=== PATIENT | female | born 1985 | race Two or more races ===

== ENCOUNTER 2020-01-24 15:18 | Outpatient (REF) | payer OTHER, MEDICAID, SELFPAY | END 2020-01-24 15:19 | disposition home or self-care (01) | LOC: HO.LAB 15:18 | PROVIDERS: Visit Provider Internal Medicine | DX: Z20.828 Contact with and (suspected) exposure to other viral communicable diseases (principal) | CPT/HCPCS: C9803; U0003 ==

== ENCOUNTER 2021-05-02 14:45 | Outpatient (REF) | payer OTHER, MEDICAID, SELFPAY ==
[2021-05-03 09:44] LABS: BV Int Neg Control Negative (Negative); BV Int Pos Control Positive (Positive)
[2021-05-03 09:46] LABS: CT PCR NOT DETECTED (Not Detect.); NG PCR NOT DETECTED (Not Detect.)
[2021-05-04 16:01] LABS: HPV mRNA E6/E7 rflx Not Detected (Not Detected)
== END 2021-05-02 14:46 | disposition home or self-care (01) ==
LOC: HO.LAB 14:45
PROVIDERS: Visit Provider Advanced Practice Midwife
DX: Z30.432 Encounter for removal of intrauterine contraceptive device (principal); Z20.2 Contact with and (suspected) exposure to infections with a predominantly sexual mode of transmission; R53.83 Other fatigue; N92.0 Excessive and frequent menstruation with regular cycle
CPT/HCPCS: 58301; 87480; 87491; 87510; 87591; 87624; 87660; 88142

== ENCOUNTER 2021-06-11 11:40 | Outpatient (REF) | payer OTHER, MEDICAID, SELFPAY ==
[2021-06-11 13:08] LABS: Hemoglobin 13.1 g/dl (12.0-16.0); Mean Corpuscular HGB Conc 35.4 g/dl (31.0-35.0); Mean Corpuscular Hemoglobin 28.4 pg (27.0-33.0); Mean Corpuscular Volume 80.1 fL (80.0-98.0); Mean Platelet Volume 10.5 fL (9.4-12.3); Platelet Count 407 X10*3/uL (160-400); Red Blood Count 4.62 X10*6/uL (4.20-5.50); Red Cell Distribution Width 14.3 % (11.0-16.0); White Blood Count 11.6 X10*3/uL (4.8-10.8)
[2021-06-11 13:49] LABS: Thyroid Stimulating Hormone 2.35 uIU/mL (0.32-4.0)
[2021-06-12 03:53] LABS: HBsAGNum1 0.11 S/CO (0.00-0.99); HIV AB/AG Nonreactive (Nonreactive); HIV Num 1 0.06 S/CO (0.00-0.99); Hepatitis B Surface Antigen Negative (Negative); ~HepC Num1 0.09 S/CO (0.00-0.79); ~Hepatitis C Antibody Nonreactive (Nonreactive)
[2021-06-12 06:10] LABS: Syphilis Screen Nonreactive (Nonreactive)
== END 2021-06-11 11:41 | disposition home or self-care (01) ==
LOC: HO.LAB 11:40
PROVIDERS: Visit Provider Advanced Practice Midwife
DX: Z01.419 Encounter for gynecological examination (general) (routine) without abnormal findings (principal); Z20.2 Contact with and (suspected) exposure to infections with a predominantly sexual mode of transmission; N92.0 Excessive and frequent menstruation with regular cycle; R53.83 Other fatigue
CPT/HCPCS: 36415; 84443; 85027; 86780; 86803; 87340; 87389

== ENCOUNTER 2021-06-11 12:41 | Emergency (ER) | payer OTHER, MEDICAID, SELFPAY ==
[2021-06-11 13:01] VITALS: BP 131/77; PULSE 76; RESP 18; TEMP 36.3; O2SAT 98; BMI 35.6
--- NOTE | 2021-06-11 13:35 | ED.GENADULT ---
HPI - General Adult General Chief complaint: General Medical Stated complaint: back pain/body aches Time Seen by Provider: 06/11/21 13:26 Source: patient Mode of arrival: ambulatory Limitations: no limitations History of Present Illness HPI narrative: 35-year-old female complaining of body aches of her entire body in all her joints chronic back pain shoulder hand and knees and leg pain. 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 She is taking Tylenol last dose being this morning Related Data Previous Rx's Medication Instructions Recorded norethindrone (contraceptive) 0.35 0.35 mg PO DAILY #84 tab 05/02/21 mg tablet Allergies Allergy/AdvReac Type Severity Reaction Status Date / Time No Known Allergies Allergy Verified 06/11/21 13:01 Review of Systems Review of Systems: Review of systems: General: Patient denies any fever chills recent illness or falls Musculoskeletal: back pain or body aches there have been no falls or other injuries HEENT: denies headache, runny nose, ear pain Respiratory: denies shortness of breath, cough Cardiovascular: no chest pain or palpitations : denies dysuria, frequency Abdomen: no nausea vomiting denies abdominal pain Extremities: no swelling, no pain Skin: no diaphoresis Yes all other systems are reviewed and are negative [facility] Family History Family History Mother HTN (hypertension) Paternal Aunt Ovarian cancer Paternal Aunt Thyroid cancer Social History Social History Alcohol intake: never Patient Tobacco Use Status: Never used Tobacco Advance Directives: No Advance Directives Information Provided: No Gender identity: Female Physical Exam ED Vital Signs: Vital Signs - 24 hr 06/11/21 13:01 Temperature 97.3 F Pulse Rate 76 Respiratory Rate 18 Blood Pressure 131/77 Pulse Oximetry 98 BMI result Body Mass Index 35.6 General: Well-appearing well-nourished in no signs of distress HEENT: Normocephalic atraumatic Neck: No signs of JVD, no masses no tenderness or lymphadenopathy Cardiovascular: Regular rate and rhythm Respiratory: Clear to auscultation bilaterally Abdomen: Soft nontender no masses Extremities: Normal pedal pulses no signs of edema Skin: Dry warm no rashes Back: No tenderness full ROM Medical Decision Making MDM Narrative Medical decision making narrative: Patient with body aches no signs of infection no signs or need for imaging I will give patient Toradol Tylenol since September for COVID and flu. COVID and flu both negative will send patient home with PCP follow-up. Lab Data Labs: Lab Results 06/11/21 06/11/21 Range/Units 13:49 13:49 COVID-19 (MARIA ANTONIA) Negative (Negative) COVID-19 Clin Com See Note Influenza Type A (BENITO) Negative (Negative) Influenza Type B (BENITO) Negative (Negative) Influenza A & B Note See Note Discharge Plan Discharge Clinical Impression: Myalgia Patient Disposition: Home, Self-Care Instructions: Musculoskeletal Pain (ED), Arthralgia (ED) Additional Instructions: Please call follow care doctor given the concerns please do not hesitate to come back to emergency department. Prescriptions: No Action norethindrone (contraceptive) 0.35 mg tablet 0.35 mg PO DAILY Qty: 84 4RF
[2021-06-11] MEDS: Ketorolac Tromethamine 30 MG/ML VIAL 15 MG IM (13:50)
[2021-06-11] MEDS: Acetaminophen 325 MG TABLET 650 MG PO (13:50)
[2021-06-11 14:13] LABS: COVID-19 Test Negative (Negative)
[2021-06-11 14:20] LABS: Influenza A Negative (Negative); Influenza B2 Negative (Negative)
[2021-06-11 14:33] VITALS: RESP 18
== END 2021-06-11 14:38 | disposition home or self-care (01) ==
PROVIDERS: Emergency Provider Student in an Organized Health Care Education/Training Program
DX: M79.10 Myalgia, unspecified site (principal); Z20.822 Contact with and (suspected) exposure to COVID-19
CPT/HCPCS: 87502; 87635; 96372; 99283; 99284; J1885

== ENCOUNTER 2021-07-31 12:13 | Outpatient (REF) | payer OTHER, MEDICAID, SELFPAY | END 2021-07-31 12:14 | disposition home or self-care (01) | LOC: HO.LAB 12:13 | PROVIDERS: Visit Provider Advanced Practice Midwife | DX: N92.0 Excessive and frequent menstruation with regular cycle (principal); Z12.4 Encounter for screening for malignant neoplasm of cervix | CPT/HCPCS: 88142 ==

== ENCOUNTER 2021-09-12 14:54 | Outpatient (REF) | payer OTHER, MEDICAID, SELFPAY ==
--- NOTE | ~2021-09-12 | US_ITS ---
EXAMINATION: US PELVIS CLINICAL INFORMATION: Excessive and frequent menstruation with regular cycle, last menstrual period 08/15/2021. COMPARISON: None TECHNIQUE: Ultrasound of the pelvis is performed using both transabdominal and transvaginal transducers along with Doppler. Transvaginal imaging is performed due to inadequate visualization transabdominally. FINDINGS: The uterus is heterogeneous and measures 9.8 x 4.8 x 6.3 cm. There is a 2.5 x 2.5 x 2.6 cm fibroid. No significant free fluid. Nabothian cysts identified. Endometrial thickness is 1.8 cm. Left ovary is unremarkable and measures 2.9 x 2.3 x 1.6 cm, volume 5.6 mL. Right ovary measures 3.0 x 2.0 x 2.5 cm, volume 7.9 mL. Echogenic foci characteristic of calcifications are identified within the right ovary. US/US pelvic and transvaginal IMPRESSION: 1. Heterogeneous uterus with 2.6 cm fibroid. 2. Echogenic foci right ovary are characteristic of calcification. 3. Unremarkable left ovary. 4. No significant fluid in the cul-de-sac. 5. Endometrial thickness is 1.8 cm.
== END 2021-09-12 14:55 | disposition home or self-care (01) ==
LOC: HO.US 14:54
PROVIDERS: Visit Provider Advanced Practice Midwife
DX: N92.0 Excessive and frequent menstruation with regular cycle (principal)
CPT/HCPCS: 76830; 76856

== ENCOUNTER 2022-05-22 08:48 | Emergency (ER) | payer OTHER, MEDICAID, SELFPAY ==
[2022-05-22 08:50] VITALS: BP 126/81; PULSE 101; RESP 20; TEMP 36.5; O2SAT 98; BMI 34.7
--- NOTE | 2022-05-22 09:34 | ED_ITS ---
HPI - General Adult General Chief complaint: Neck Pain/Injury Stated complaint: r sided neck pain into shoulder Time Seen by Provider: 05/22/22 09:34 Source: patient Limitations: no limitations History of Present Illness HPI narrative: 36-year-old female complaining of right-sided neck pain x2 days pain is atraumatic in nature patient awoke with the pain pain increases with range of motion or palpation the right side. 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 Patient is without fever chills or shortness of breath. Patient took a home test was negative. Patient denies any vaginal discharge. Symptoms are [id number] pain in the right neck is 6/10. Related Data Previous Rx's Medication Instructions Recorded methocarbamol 750 mg tablet 750 mg PO TID PRN muscle spasm #20 05/22/22 tabs ondansetron HCl 4 mg tablet 4 mg PO Q8H PRN nausea and 05/22/22 vomiting #10 tabs Allergies Allergy/AdvReac Type Severity Reaction Status Date / Time No Known Allergies Allergy Verified 09/20/21 13:47 Review of Systems Review of Systems: Constitutional : No Weight loss, No Fever, No Chills, No Night Sweats, No Fatigue, No Malaise ENT/Mouth : No sore throat Eyes: no vision changes eye discharge Cardiovascular : No Chest Pain, No SOB, No Dyspnea on Exertion, No Orthopnea, No Edema, No Palpitations Respiratory : No Cough, No Sputum, No Wheezing, No Smoke Exposure, No Dyspnea Gastrointestinal : few episodes of nausea vomiting and some slight diarrhea no abdominal pain at this time Genitourinary : no irregular bleeding, No Dysuria, No Urinary Frequency, No Hematuria, No Urinary Incontinence, No Urgency, No Flank Pain Musculoskeletal : neck is tender neck pain right-sided. No other extremity pain Neuro : No Weakness, No Numbness, No Paresthesias, No Loss of Consciousness, No Dizziness, No Headache Psych : No Anxiety/Panic, No Depression, No SI/HI/AH/VH, No Social Issues, Heme/Lymph: No Bruising, No Bleeding,No Lymphadenopathy Endocrine : No Polyuria, No Polydipsia, No Temperature Intolerance PMF Past Medical History Attestation statement: The following information was validated with the patient. Family History Family History Mother HTN (hypertension) Paternal Aunt Ovarian cancer Paternal Aunt Thyroid cancer Social History Social History Alcohol intake: never Patient Tobacco Use Status: Never used Tobacco Advance Directives: No Gender identity: Female Physical Exam ED Vital Signs: Vital Signs - 24 hr 05/22/22 08:50 Temperature 97.7 F Pulse Rate 101 H Respiratory Rate 20 Blood Pressure 126/81 Pulse Oximetry 98 Oxygen Delivery Method Room Air BMI result Body Mass Index 34.7 vital signs have been reviewed as normal and appeared to be correct. Blood pressure normal. Heart rate normal. Respiration rate normal. Temperature normal. Oxygen saturation normal. Appearance: Alert. Oriented X3. No acute distress. Head: Normal external exam. Normocephalic. Atraumatic. No Farrell signs noted. No raccoon eyes noted Eyes: PERRLA. EOMI. Conjunctiva and sclera normal. Eyelids normal. ENT: Pharynx normal. Uvula midline. Moist mucous membranes. No trismus noted. No drooling noted. No muffled voice noted. Neck: positive paraspinal muscle tenderness of the cervical spine on the right side no midline tenderness. No nuchal rigidity CVS: Heart regular rate and rhythm no murmurs and rubs Respiratory: Breath sounds are clear to auscultation bilaterally. No accessory muscle use noted. Abdomen: Soft nontender no rebound or guarding positive bowel sounds Back: No CVA tenderness. Full range of motion noted. Skin: Skin warm and dry. Normal skin color. Normal skin turgor. No rashes/lesions/lacerations noted. Extremities: No lower extremity edema. Extremities exhibit normal range of motion. Extremities nontender. Neuro: Oriented X 3. No motor deficit. No sensory deficit. Reflexes normal. Course Course Course Narrative: Spasmodic torticollis right-sided Viral syndrome Nausea vomiting 36-year-old female awoke 2 days prior with right-sided neck pain. Pain increases with range of motion. patient also had some slight nausea vomiting and slight diarrhea. 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 Patient denies any recent trauma or falls or injuries to the neck. Symptoms are seem consistent with spasmodic torticollis will check a the U test at this time as her menses is late. Abdomen soft nontender no rebound or guard on oral mucosa is moist 11:18 U preg is negative symptoms seem consistent with spasmodic torticollis will treat with a muscle relaxer and sats at this time. patient is also experi ences slight GI bug will place on Zofran at this time. Abdomen soft no rebound or guarding no concerns for intra-abdominal issues at this time. Patient is otherwise well-appearing nontoxic in appearance plan to discharge home at this time Medical Decision Making Lab Data Labs: Lab Results 05/22/22 Range/Units 10:42 Urine Test NEGATIVE (NEGATIVE) Discharge Plan Discharge Clinical Impression: Spasmodic torticollis Patient Disposition: Home, Self-Care Instructions: Spasmodic Torticollis (ED) Additional Instructions: The symptoms of the right-sided neck pain are consistent with spasmodic torticollis which will treat with a muscle relaxer test is negative [place] diet increase fluids rest Prescriptions: New methocarbamol 750 mg tablet 750 mg PO TID PRN (Reason: muscle spasm) Qty: 20 0RF ondansetron HCl 4 mg tablet 4 mg PO Q8H PRN (Reason: nausea and vomiting) Qty: 10 0RF Stand Alone Forms: Work/School Release
[2022-05-22 11:12] LABS: UPreg QC Valid YES; Urine Pregnancy NEGATIVE (NEGATIVE)
== END 2022-05-22 11:44 | disposition home or self-care (01) ==
PROVIDERS: Physician Assistant; Emergency Provider Emergency Medicine; PCP Internal Medicine
DX: S13.4XXA Sprain of ligaments of cervical spine, initial encounter (principal); M43.6 Torticollis; X58.XXXA Exposure to other specified factors, initial encounter; Y93.9 Activity, unspecified; Y92.9 Unspecified place or not applicable; Y99.9 Unspecified external cause status
CPT/HCPCS: 81025; 99282; 99283

== ENCOUNTER → 2023-01-28 10:19 | Outpatient (BNVA) | payer SELFPAY | PROVIDERS: PCP Internal Medicine ==